=== PATIENT | female | born 1990 | race Hispanic/Latino ===

== ENCOUNTER 2016-07-06 09:14 | Emergency (ER) | payer OTHER ==
[2016-07-06] MEDS ORDERED: DICYCLOMINE 20MG/2ML VIAL IM ONE (09:54)
[2016-07-06] MEDS ORDERED: ONDANSETRON 4 MG VIAL ONE (09:54)
[2016-07-06] MEDS ORDERED: SODIUM CHLORIDE 0.9% 1,000 ML ONE (09:54)
== END 2016-07-06 12:26 | disposition home or self-care (01) ==
LOC: ER 09:14
CPT/HCPCS: 36415 ×2; 74022 ×2; 80053 ×2; 81001 ×2; 83630 ×2; 83690 ×2; 84703 ×2; 85025 ×2; 87045 ×2; 87046 ×2; 87077 ×2; 87088 ×2; 87177 ×2; 87186 ×2; 87493 ×2; 96361; 96372; 96374; J0500; J2405